=== PATIENT | female | born 1955 | race Caucasian/White ===

== ENCOUNTER → 2022-06-22 08:16 | Outpatient (CLI) | payer MEDICARE, SELFPAY ==
--- NOTE | ~2022-06-22 | MR_ITS ---
MRI of the left hip Clinical history: Left hip pain Technique: Coronal and axial T1-weighted and T2 fat-sat images were acquired through the pelvis. Sagi ttal T1-weighted and T2 fat-sat images were also acquired through the pelvis. Findings: There is no fracture, avascular necrosis, or transient osteoporosis of either hip. Bone mar row signals of the proximal femora and visualized pelvic bones are unremarkable. There is probable mi ld diffuse chondromalacia of the bilateral hip joints. No significant bony productive change evident. There is a fluid distended bursa draped about the region of of the left lesser trochanter, between th e left lesser trochanter and the left ischium. This fluid collection measures approximately 6.5 x 1.8 x 2.3 cm in extent. No other fluid collection seen about the pelvis. No hip joint effusion evident o n either side. Visualized muscles demonstrate otherwise unremarkable signal intensity. There are probable chronic pa rtial low-grade tearing at the left hamstring tendon origins. Remaining tendons are intact. IMPRESSION: Findings consistent with left lesser trochanteric bursitis, with fluid distended bursa measuring 6.5 x 1.8 x 2.3 cm, as detailed above. Ischiofemoral impingement can result in such bursal formation. 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 Reviewed, dictated and finalized at location . NT MANAGER IMPRESSION: Findings consistent with left lesser trochanteric bursitis, with fluid distende d bursa measuring 6.5 x 1.8 x 2.3 cm, as detailed above. Ischiofemoral impingem ent can result in such bursal formation. 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
== END ==
PROVIDERS: Visit Provider Orthopaedic Surgery
DX: R10.2 Pelvic and perineal pain (principal); M25.552 Pain in left hip
CPT/HCPCS: 72195

== ENCOUNTER 2023-02-08 11:07 | Outpatient (CLI) | payer MEDICARE, SELFPAY ==
--- NOTE | ~2023-02-08 | US_ITS ---
EXAMINATION:US venous doppler LE LT INDICATION:Left calf pain and redness TECHNIQUE: Multiple grayscale, color flow and Doppler images of the left lower extremity deep venous systems were obtained and reviewed. COMPARISON:No prior studies for comparison. FINDINGS: The common femoral, superficial femoral and popliteal veins demonstrate normal respiratory variation, augmentation and compressibility. Color flow is also seen within the posterior tibial, pe roneal, greater saphenous and profunda veins. There is diffuse subcutaneous edema. IMPRESSION: 1: No lower extremity deep venous thrombosis. Reviewed, dictated and finalized at location B.
== END 2023-02-08 11:08 | disposition home or self-care (01) ==
LOC: ANHIMG 11:22
DX: I82.402 Acute embolism and thrombosis of unspecified deep veins of left lower extremity (principal)
CPT/HCPCS: 93971